=== PATIENT | male | born 1950 | race Caucasian/White ===

== ENCOUNTER 2017-01-28 20:43 | Emergency (ER) | payer SELFPAY ==
[2017-01-28] MEDS ORDERED: Albuterol 0.083% Inhal Sol (2.5 mg/3 mL) UD IH STA (22:41)
[2017-01-28] MEDS ORDERED: Albuterol 0.083% Inhal Sol (2.5 mg/3 mL) UD ONE (22:51)
[2017-01-28] MEDS ORDERED: Azithromycin 500 MG in Sodium Chloride 0.9% 250 ML IVPB STA (23:02)
[2017-01-28] MEDS ORDERED: Promethazine/Cod 6.25mg-10mg/5ml Syr UD PO STA (23:02)
--- NOTE | 2017-01-28 23:10 | C.PDOC ---
History Of Present Illness Patient is a 66 year old male with a Hx of diabetes and HTN, who presents to the ER for evaluation of URI symptoms for the past 3 days, associated with nasal congestion, sore throat, and dry cough. Patient reports he woke up with greenish discharge to his right eye. Denies fever, chills, headache, dizziness, visual changes, blurry vision, double vision, blindness, contact use, denies chest pain, SOB, palpitation, diaphoresis, wheezing ,abdominal pain, back pain, UTI sx. Denies recent travel or sick contact. Ambulate to ED for evaluation, not in any apparent distress. Occasional dry cough noted in ED. Time Seen by Provider: 01/28/17 21:46 Chief Complaint (Nursing): ENT Problem History Per: Patient History/Exam Limitations: no limitations Onset/Duration Of Symptoms: Days (3) Current Symptoms Are (Timing): Still Present Location Of Pain: Throat Sick Contacts (Context): None Associated Symptoms: Sore Throat, Cough (Dry), Nasal Congestion. denies: Fever , Chills, Other (Dizziness, Chest pain, SOB, Wheezing, Abdominal pain) Recent travel outside of the [place]: No Past Medical History Reviewed: Historical Data, Nursing Documentation, Vital Signs Vital Signs: Last Vital Signs Temp 97.5 F L 01/29/17 00:38 Pulse 78 01/29/17 00:38 Resp 18 01/29/17 00:38 BP 114/69 01/29/17 00:38 Pulse Ox 99 01/29/17 04:08 - Medical History PMH: Anxiety, Depression, Diabetes, HTN, Hypercholesterolemia, Chronic Pain ( Bilateral Leg Pain) - [facility] Procedures COLONOSCOPY (09/28/13) Family History: States: Unknown Family Hx - Social History Hx Tobacco Use: Yes Hx Alcohol Use: No Hx Substance Use: No - Immunization History Hx Tetanus Toxoid Vaccination: No Hx Influenza Vaccination: No Hx Pneumococcal Vaccination: No Review Of Systems Constitutional: Negative for: Fever, Chills ENT: Positive for: Nose Congestion, Throat Pain Cardiovascular: Negative for: Chest Pain Respiratory: Positive for: Cough (Dry). Negative for: Shortness of Breath, Wheezing Gastrointestinal: Negative for: Abdominal Pain Neurological: Negative for: Headache, Dizziness Physical Exam - Physical Exam Appears: Well, Non-toxic Skin: Normal Color, Warm, Dry, No Rash Eye(s): bilateral: PERRL, EOMI (no pain or limitation B/L), right: Other ( Copious amound of green discharge with mild conjunctival injection. No periorbital edema or erythema.) Ear(s): Bilateral: Normal Nose: No Flaring, No Discharge Oral Mucosa: Moist, No Drooling Throat: Erythema (Mild), No Exudate, No Drooling Neck: Supple Chest: Symmetrical, No Ecchymosis Cardiovascular: Rhythm Regular, No Friction Rub, No Murmur, No JVD Respiratory: No Decreased Breath Sounds, No Accessory Muscle Use, No Rales, No Rhonchi, No Stridor, No Wheezing Gastrointestinal/Abdominal: Soft, No Tenderness, No Distention, No Guarding Back: No CVA Tenderness Extremity: No Pedal Edema Neurological/Psych: Oriented x3, Normal Speech, Normal Cognition ED Course And Treatment - Laboratory Results Result Diagrams: 01/28/17 23:03 01/28/17 23:03 O2 Sat by Pulse Oximetry: 99 (Room air) Pulse Ox Interpretation: Normal - Radiology CXR: Interpreted by Me, Viewed By Me CXR Interpretation: Yes: No Acute Disease Progress Note: Blood work and CXR ordered. Nebulizer treatment, prednisone, and promethazine administered. Pt was OBS in ED for 3 hours and reports moderate improvement. On re-eval, pt is afebrile, hemodynamicaly stable. Non-toxic. [place] PO well in ED. PulseOx 99% rA. Right eye: exam c/w conjunctivitis r/ o bacterial infection. No evidence of periorbital cellulitis. ENT: no acute findings. Lungs: CTA B/L, BS equal B/L. ABd: benign, (-) guarding, (-) rebound. Back: (-) CVA tenderness. Neurologicaly intact. Diagnostics review, hyperglycemia noted. Hydration with IVF order. CBC- no leukocytosis. UA review (+) WBC. CXR (-) acute infiltrate. Pt has clinical finidngs c/w acute bronchitis, conjunctivitis r/o UTI. Pt advised on course of ds. ref. to F/u with PMD in 2-3 days for re-eavl. return to ED if any worsening or new changes. Disposition Counseled Patient/Family Regarding: Studies Performed, Diagnosis, Need For Followup, Rx Given - Disposition Referrals: [facility] at [facility] [Outside] Disposition: HOME/ ROUTINE Disposition Time: 00:02 Condition: STABLE Additional Instructions: Take medication as prescribed Encourage fluids Follow up with PMD in 2-3 days for re-evaluation. return to ED if any worsening or new changes. Prescriptions: Benzonatate [Tessalon Perle] 100 mg PO TID #14 capsule Cefdinir [Omnicef] 300 mg PO BID #14 cap Tobramycin [Tobrex] 1 drop RIGHTEYE Q4 #1 bottle Instructions: Acute Bronchitis (ED), Conjunctivitis (ED) Print Language: THAI - Clinical Impression Clinical Impression: Bronchitis, Conjunctivitis - Scribe Statement The provider has reviewed the documentation as recorded by the Scribe Tanner Louis All medical record entries made by the Denita were at my direction and personally dictated by me. I have reviewed the chart and agree that the record accurately reflects my personal performance of the history, physical exam, medical decision making, and the department course for this patient. I have also personally directed, reviewed, and agree with the discharge instructions and disposition.
[2017-01-28 23:13] LABS: BASO % 0.7 % (0.0-2.0); EOS # 0.7 K/uL (0.0-0.7); EOS % 11.2 % (0.0-4.0); HEMOGLOBIN 14.1 g/dL (12.0-18.0); LYMPH # 1.6 K/uL (1.0-4.3); LYMPH % 25.5 % (20.0-40.0); MEAN CELL VOLUME 88.6 fL (80.0-94.0); MEAN CORPUSCULAR HEMOGLOBIN 29.9 pg (27.0-31.0); MEAN CORPUSCULAR HGB CONC 33.7 g/dL (33.0-37.0); MEAN PLATELET VOLUME 10.9 fL (7.2-11.7); MONO # 0.6 K/uL (0.0-0.8); MONO % 10.1 % (0.0-10.0); NEUT # 3.2 K/uL (1.8-7.0); NEUT % 52.5 % (50.0-75.0); NRBC % 0.1 % (0.0-2.0); RBC 4.71 Mil/uL (4.40-5.90); RED CELL DISTRIBUTION WIDTH 12.9 % (11.5-14.5); WHITE BLOOD COUNT 6.1 K/uL (4.8-10.8)
[2017-01-28 23:17] LABS: URINE BACTERIA RARE (<OCC); URINE BILIRUBIN NEGATIVE (NEGATIVE); URINE BLOOD NEGATIVE (NEGATIVE); URINE CLARITY Clear (Clear); URINE COLOR Yellow (YELLOW); URINE GLUCOSE (UA) 3+ mg/dL (Normal); URINE NITRATE NEGATIVE (NEGATIVE); URINE PROTEIN NEGATIVE (NEGATIVE); URINE UROBILINOGEN NORMAL mg/dL (0.2-1.0)
[2017-01-28] MEDS ORDERED: Promethazine/Cod 6.25mg-10mg/5ml Syr UD ONE (23:19)
[2017-01-28] MEDS ORDERED: Azithromycin 500mg/250ML NS 500 MG/250 ML BAG IVPB ONE (23:19)
[2017-01-28 23:22] LABS: URINE LEUKOCYTE ESTERASE 1+ Leu/uL (Negative)
[2017-01-28 23:25] LABS: BLOOD UREA NITROGEN 11 mg/dL (9-20); GFR AFRICAN-AMERICAN > 60; GFR NON-AFRICAN AMERICAN > 60
[2017-01-28 23:26] LABS: CALCIUM 8.8 mg/dl (8.6-10.4)
[2017-01-29 00:38] VITALS: BP 114/69; PULSE 78; RESP 18; TEMP 97.5
[2017-01-29 00:45] VITALS: O2SAT 99
[2017-01-29] MEDS ORDERED: cefTRIAXone IV 1 gm in Dextros 50 ML IVPB ONE (01:03)
--- NOTE | 2017-01-29 10:38 | RAD ---
HISTORY: Cough COMPARISON: 01/21/2014 TECHNIQUE: Chest PA and lateral FINDINGS: LUNGS: No active pulmonary disease. PLEURA: No significant pleural effusion identified. No pneumothorax apparent. CARDIOVASCULAR: Normal. OSSEOUS STRUCTURES: No significant abnormalities. VISUALIZED UPPER ABDOMEN: Normal. OTHER FINDINGS: None. IMPRESSION: No active disease.
== END 2017-01-29 01:15 | disposition home or self-care (01) ==
LOC: C.ER 20:43
DX: J40 Bronchitis, not specified as acute or chronic (principal); Z72.0 Tobacco use; H10.9 Unspecified conjunctivitis
CPT/HCPCS: 71020; 80048; 81001; 85025; 87040; 96365; 99283; J0456; J0696; J7050

== ENCOUNTER 2017-03-07 16:14 | Emergency (ER) | payer SELFPAY ==
[2017-03-07 16:33] VITALS: TEMP 97.9; O2SAT 98
--- NOTE | 2017-03-07 17:12 | RAD ---
HISTORY: cough COMPARISON: No prior. TECHNIQUE: Chest PA and lateral FINDINGS: LUNGS: Mild venous congestion. PLEURA: No significant pleural effusion identified. No pneumothorax apparent. CARDIOVASCULAR: Normal. OSSEOUS STRUCTURES: No significant abnormalities. VISUALIZED UPPER ABDOMEN: Normal. OTHER FINDINGS: None. IMPRESSION: Mild venous congestion.
[2017-03-07 17:38] VITALS: BP 140/85; PULSE 74; RESP 16
--- NOTE | 2017-03-07 21:38 | C.PDOC ---
History Of Present Illness Ignacio Singer, a 66 year old male, presents to the ED complaining of cough productive of yellow and green sputum x1 month. The patient states that the cough gets worse at night and because of it he cannot sleep. He reports that he was seen here in the ED 3 weeks ago for similar symptoms and was given medication which offered no relief. Denies chest pain, shortness of breath, travel, fever, rash, nausea and vomiting. Time Seen by Provider: 03/07/17 16:31 Chief Complaint (Nursing): Cough, Cold, Congestion History Per: Patient History/Exam Limitations: no limitations Current Symptoms Are (Timing): Still Present Associated Symptoms: Cough Past Medical History Reviewed: Historical Data, Nursing Documentation, Vital Signs Vital Signs: Last Vital Signs Temp 97.9 F 03/07/17 16:23 Pulse 74 03/07/17 17:37 Resp 16 03/07/17 17:37 BP 140/85 03/07/17 17:37 Pulse Ox 98 03/07/17 21:45 - Medical History PMH: Anxiety, Depression, Diabetes, HTN, Hypercholesterolemia, Chronic Pain ( Bilateral Leg Pain) Denies: Chronic Kidney Disease - [facility] Procedures COLONOSCOPY (09/28/13) Family History: States: Unknown Family Hx - Social History Hx Tobacco Use: Yes Hx Alcohol Use: No Hx Substance Use: No - Immunization History Hx Tetanus Toxoid Vaccination: No Hx Influenza Vaccination: No Hx Pneumococcal Vaccination: No Review Of Systems Constitutional: Negative for: Fever Cardiovascular: Negative for: Chest Pain Respiratory: Positive for: Cough (Cough productive of yellow green sputum.). Negative for: Shortness of Breath Gastrointestinal: Negative for: Nausea, Vomiting Skin: Negative for: Rash Physical Exam - Physical Exam Appears: Well, Toxic Skin: Normal Color, Warm, Dry Head: Atraumatic, Normacephalic, No Tenderness Eye(s): bilateral: Normal Inspection, PERRL, EOMI Ear(s): Bilateral: Normal Nose: Normal Oral Mucosa: Moist Throat: Normal, No Erythema, No Exudate Neck: Normal, Normal ROM, Supple Chest: Symmetrical, No Tenderness Cardiovascular: No Friction Rub, No Murmur Respiratory: Normal Breath Sounds, No Rales, No Rhonchi, No Wheezing Gastrointestinal/Abdominal: Soft, No Tenderness Back: Normal Inspection, No CVA Tenderness Neurological/Psych: Oriented x3, Normal Speech, Normal Cognition, Normal Motor Gait: Steady ED Course And Treatment O2 Sat by Pulse Oximetry: 98 (RA) Pulse Ox Interpretation: Normal Medical Decision Making Medical Decision Makin Initial Impression: 66 year old male presenting with cough productive of yellow and green sputum Initial Plan: * CXR * Claritin * Zithromax 500mg PO * Prednisone TAB 40mg PO * Reevaluation CXR performes: results negative. On re-exam, the patient reports improvement of symptoms. Lungs are CTA, heart is RRR, ambulatory in the ED with steady gait. Abdomen is soft, non-tender and tolerating Po well. Follow up with the medical doctor within 1-2 days. Return if worsened. Disposition - Disposition Disposition: HOME/ ROUTINE Disposition Time: 17:00 Condition: GOOD Additional Instructions: Follow up with the medical doctor within 1-2 days, Return if worsened. Prescriptions: Azithromycin [Zithromax] 250 mg PO DAILY #4 tab predniSONE [Prednisone] 20 mg PO BID #10 tab Promethazine/Codeine [Phenergan/Codeine Oral Syrup] 5 ml PO Q8 PRN #50 ml PRN Reason: Cough Instructions: Acute Bronchitis (ED) Forms: [employer] (Kinyarwanda) - Clinical Impression Clinical Impression: Bronchitis - Scribe Statement The provider has reviewed the documentation as recorded by the Scribraúl Kennedy All medical record entries made by the Leroyibraúl were at my direction and personally dictated by me. I have reviewed the chart and agree that the record accurately reflects my personal performance of the history, physical exam, medical decision making, and the department course for this patient. I have also personally directed, reviewed, and agree with the discharge instructions and disposition.
== END 2017-03-07 17:37 | disposition home or self-care (01) ==
LOC: C.ER 16:14
DX: J40 Bronchitis, not specified as acute or chronic (principal)

== ENCOUNTER 2017-03-20 05:07 | Emergency (ER) | payer MEDICARE, OTHER ==
[2017-03-20 05:07] VITALS: BMI 23.0
[2017-03-20 05:22] VITALS: PULSE 80; TEMP 97; O2SAT 98
--- NOTE | 2017-03-20 05:26 | C.PDOC ---
Time Seen by Provider: 03/20/17 05:26 Chief Complaint (Nursing): Medical Clearance Past Medical History Vital Signs: Last Vital Signs Temp 97 F L 03/20/17 05:20 Pulse 80 03/20/17 05:20 Resp 14 03/20/17 05:20 BP 124/76 03/20/17 05:20 Pulse Ox 98 03/20/17 05:20 - Medical History PMH: Anxiety, Depression, Diabetes, HTN, Hypercholesterolemia, Chronic Pain ( Bilateral Leg Pain) Denies: Chronic Kidney Disease - [facility] Procedures COLONOSCOPY (09/28/13) Family History: States: Unknown Family Hx - Social History Hx Tobacco Use: Yes Hx Alcohol Use: No Hx Substance Use: No - Immunization History Hx Tetanus Toxoid Vaccination: No Hx Influenza Vaccination: No Hx Pneumococcal Vaccination: No ED Course And Treatment O2 Sat by Pulse Oximetry: 98 Disposition Counseled Patient/Family Regarding: Studies Performed, Diagnosis - Disposition Disposition Time: 05:26 Forms: [employer] (Lithuanian)
--- NOTE | 2017-03-20 05:34 | C.PDOC ---
History Of Present Illness 66 yo male w/PMHx of HTN, IDDM come in for evaluation of " feeling shaky, tremolous after I woke up at 3AM todany". Pt sts, took his Insulin prior to bedtime and skipped dinner. Pt woke at 3AM go to bathroom, when felt shaky. Pt sts, " I thought my sugar is high and took metformin 1tab prior to arrival". Pt admits, symptoms resolved with time. At present time, pt is asymptomatic. Ambulate to ED for evaluation, not in any apparent distress. Time Seen by Provider: 03/20/17 05:26 Chief Complaint (Nursing): Medical Clearance History Per: Patient Past Medical History Reviewed: Historical Data, Nursing Documentation, Vital Signs Vital Signs: Last Vital Signs Temp 97 F L 03/20/17 05:20 Pulse 80 03/20/17 05:20 Resp 14 03/20/17 05:20 BP 124/76 03/20/17 05:20 Pulse Ox 98 03/20/17 05:26 - Medical History PMH: Anxiety, Depression, Diabetes, HTN, Hypercholesterolemia, Chronic Pain ( Bilateral Leg Pain) Denies: Chronic Kidney Disease - [facility] Procedures COLONOSCOPY (09/28/13) Family History: States: No Known Family Hx - Social History Hx Tobacco Use: Yes Hx Alcohol Use: No Hx Substance Use: No - Immunization History Hx Tetanus Toxoid Vaccination: No Hx Influenza Vaccination: No Hx Pneumococcal Vaccination: No Review Of Systems Except As Marked, All Systems Reviewed And Found Negative. Constitutional: Negative for: Fever, Chills Eyes: Negative for: Vision Change Cardiovascular: Negative for: Chest Pain, Palpitations, Edema, Light Headedness Respiratory: Negative for: Cough, Shortness of Breath, Wheezing Gastrointestinal: Negative for: Nausea, Vomiting, Abdominal Pain, Diarrhea Genitourinary: Negative for: Dysuria, Incontinence Musculoskeletal: Negative for: Neck Pain, Back Pain Neurological: Negative for: Weakness, Numbness, Altered Mental Status, Headache , Dizziness Physical Exam - Physical Exam Appears: Well, Non-toxic, No Acute Distress Skin: Normal Color, Warm, Dry, No Rash Eye(s): bilateral: PERRL Nose: No Flaring Oral Mucosa: Moist, No Drooling Throat: Normal, No Erythema, No Exudate, No Drooling Neck: Supple Cardiovascular: Rhythm Regular Respiratory: No Decreased Breath Sounds, No Accessory Muscle Use, No Rales, No Rhonchi, No Stridor, No Wheezing Gastrointestinal/Abdominal: Soft, No Tenderness, No Distention, No Guarding Back: No CVA Tenderness Extremity: Normal ROM, No Pedal Edema, No Deformity Neurological/Psych: Oriented x3, Normal Speech ED Course And Treatment O2 Sat by Pulse Oximetry: 98 Pulse Ox Interpretation: Normal Progress Note: On re-evaluation, pt is afebrile, hemodynamicaly stable. Non- toxic. Ambulatory in ED with stable gait. Asymptomatic. Tolerate Po well in ED. PulsEOx 98% RA. Neck: Supple. Lungs: CTA B/L, BS equal B/L. CVS: (+)S1S2 , reg. Abd: benign. Pt had episode of tremolous likely sec. to hypoglycemia. Currently asymtomatic. Pt advised on diabetic medictaion use and. ref. to F/u with PMD in 2-3 days for re-eval. return to ED if any worsening or new changes. Disposition Counseled Patient/Family Regarding: Studies Performed, Diagnosis, Need For Followup - Disposition Referrals: [facility] at [facility] [Outside] Kath Choe MD [Staff Provider] - Disposition: HOME/ ROUTINE Disposition Time: 05:29 Condition: STABLE Additional Instructions: Follow up with PMD in 2-3 days for re-evaluation. Return to ED if any worsening or new changes. Instructions: Diabetic Hypoglycemia (ED) Forms: [employer] (British) Print Language: YI - Clinical Impression Clinical Impression: Hypoglycemia
[2017-03-20 05:48] VITALS: BP 120/80; RESP 16
== END 2017-03-20 05:47 | disposition home or self-care (01) ==
LOC: C.ER 05:07
DX: E11.649 Type 2 diabetes mellitus with hypoglycemia without coma (principal); Z79.4 Long term (current) use of insulin

== ENCOUNTER 2018-01-11 15:43 | Emergency (ER) | payer MEDICARE, OTHER ==
[2018-01-11 15:43] VITALS: BMI 24.5
[2018-01-11 15:50] VITALS: BP 136/88; PULSE 78; TEMP 98.6; O2SAT 98
--- NOTE | 2018-01-11 16:23 | RAD ---
HISTORY: COMPARISON: 03/07/2017. TECHNIQUE: Chest PA and lateral FINDINGS: LINES AND TUBES: None. LUNG AND PLEURA: The lungs are well inflated and clear. No pleural effusion or pneumothorax. HEART AND MEDIASTINUM: The heart is not enlarged. The hilar and mediastinal contours are within normal limits. SKELETAL STRUCTURES: The bony structures are within normal limits for the patient's age. VISUALIZED UPPER ABDOMEN: Normal. OTHER FINDINGS: None. IMPRESSION: No active pulmonary disease.
--- NOTE | 2018-01-11 16:29 | C.PDOC ---
History Of Present Illness 67 year old male with PMH DM , HTN presents to the ED for evaluation of persistent dry cough for 2 weeks. Patient states the cough is causing him to have a sore throat. Patient reports his sugar was 140 this morning. He has not taken cough medicine for symptoms and denies fever, chills, chest pain, shortness of breath, or change in medication. Time Seen by Provider: 01/11/18 15:51 Chief Complaint (Nursing): ENT Problem History Per: Patient, Evaluation Manager (KE Castañeda) History/Exam Limitations: no limitations Onset/Duration Of Symptoms: Other (2 weeks ) Current Symptoms Are (Timing): Still Present Associated Symptoms: Sore Throat, Cough. denies: Fever, Chills, Sputum Additional History Per: Patient Past Medical History Reviewed: Historical Data, Nursing Documentation, Vital Signs Vital Signs: Last Vital Signs Temp 98.6 F 01/11/18 15:48 Pulse 78 01/11/18 15:48 Resp 20 01/11/18 17:28 BP 136/88 01/11/18 15:48 Pulse Ox 98 01/11/18 18:54 - Medical History PMH: Anxiety, Depression, Diabetes, HTN, Hypercholesterolemia, Chronic Pain ( Bilateral Leg Pain) Denies: Chronic Kidney Disease Surgical History: No Surg Hx - [facility] Procedures COLONOSCOPY (09/28/13) Family History: States: Unknown Family Hx - Social History Hx Tobacco Use: Yes Hx Alcohol Use: No Hx Substance Use: No - Immunization History Hx Tetanus Toxoid Vaccination: No Hx Influenza Vaccination: No Hx Pneumococcal Vaccination: No Review Of Systems Constitutional: Negative for: Fever, Chills ENT: Positive for: Throat Pain Cardiovascular: Negative for: Chest Pain Respiratory: Positive for: Cough. Negative for: Shortness of Breath, Sputum Physical Exam - Physical Exam Appears: Non-toxic, No Acute Distress Skin: Normal Color, Warm, Dry Head: Atraumatic, Normacephalic Eye(s): bilateral: Normal Inspection, EOMI Ear(s): Bilateral: Normal Nose: Normal Oral Mucosa: Moist Throat: Normal, No Erythema, No Exudate Neck: Normal ROM, Supple Chest: Symmetrical, No Deformity, No Tenderness Cardiovascular: Rhythm Regular Respiratory: Normal Breath Sounds, No Rales, No Rhonchi, No Wheezing, Other ( occasional dry cough noted ) Gastrointestinal/Abdominal: Normal Exam, Soft, No Tenderness Extremity: Normal ROM, Capillary Refill (less than 2 seconds ) Neurological/Psych: Oriented x3, Normal Speech, Normal Cognition Gait: Steady ED Course And Treatment O2 Sat by Pulse Oximetry: 98 (on RA) Pulse Ox Interpretation: Normal - Radiology CXR: Interpreted by Me, Viewed By Me CXR Interpretation: Yes: No Acute Disease Progress Note: CXR ordered, results are negative. Discussed with patient possible differential diagnosis, which include but are not limited to a medication reaction to Lisinopril. Patient was instructed to change the medication and f/u with PMD within 1-2 days for further evaluation. Case discussed with Dr Hurtado, agreed upon plan and treatment. Disposition - Disposition Referrals: [facility] at [facility] [Outside] Disposition: HOME/ ROUTINE Disposition Time: 16:25 Condition: STABLE Additional Instructions: You were evaluated today for your cough. Your chest xray shows no signs of infection. The cough MAY be caused by your medicine Lisinopril. It is suggested you stop your Lisinopril and start Norvasc. You should follow up with your doctor in 1-2 days or return to ER if symptoms persist or worsen. Fuiste evaluado hoy para tu tos. Stevens radiografa de trax no muestra signos de infeccin. La tos PUEDE ser causada por stevens medicamento Lisinopril. Se sugiere que detenga stevens Lisinopril y comience con Norvasc. Debe hacer un seguimiento con stevens mdico en 1-2 rivera o regresar a la ginny de emergencias si los sntomas persisten o empeoran. Prescriptions: amLODIPine [Norvasc] 5 mg PO DAILY #14 tab Benzonatate [Tessalon Perle] 100 mg PO BID PRN #14 capsule PRN Reason: Cough Instructions: Cough, Adult (DC) Forms: [employer] (Cambodian) Print Language: VIETNAMESE - Clinical Impression Clinical Impression: Cough - PA / FINANCIAL SOLUTIONS ADVISOR / Resident Statement MD/DO has reviewed & agrees with the documentation as recorded. - Scribe Statement The provider has reviewed the documentation as recorded by the Scribe (Samanta Gonsales) All medical record entries made by the Scribe were at my direction and personally dictated by me. I have reviewed the chart and agree that the record accurately reflects my personal performance of the history, physical exam, medical decision making, and the department course for this patient. I have also personally directed, reviewed, and agree with the discharge instructions and disposition.
[2018-01-11 17:28] VITALS: RESP 20
== END 2018-01-11 17:00 | disposition home or self-care (01) ==
LOC: C.ER 15:43
DX: R05 Cough (principal); I10 Essential (primary) hypertension; E11.9 Type 2 diabetes mellitus without complications

== ENCOUNTER 2018-03-15 15:33 | Emergency (ER) | payer MEDICARE ==
[2018-03-15 15:33] VITALS: BMI 24.5
[2018-03-15 15:51] VITALS: BP 131/66; PULSE 75; RESP 18; TEMP 98.3; O2SAT 100
--- NOTE | 2018-03-15 17:18 | C.PDOC ---
History Of Present Illness 67 year old male patient presents to the ER with c/o loose finger nail of the 4th left finger. Patient states he was fixing something at home weeks ago and injured his fingers. Patient states he has bruises on his fingers but couple days ago noticed that fingernail of the 4th left finger is loose and it concerns him because he has DM and is concerned about an infection. Patient denies fever, numbness and decrease ROM. Time Seen by Provider: 03/15/18 16:10 Chief Complaint (Nursing): Finger,Hand,&Wrist History Per: Patient History/Exam Limitations: no limitations Onset/Duration Of Symptoms: Days Current Symptoms Are (Timing): Still Present Past Medical History Reviewed: Historical Data, Nursing Documentation, Vital Signs Vital Signs: Last Vital Signs Temp 98.3 F 03/15/18 15:49 Pulse 75 03/15/18 15:49 Resp 18 03/15/18 15:49 BP 131/66 03/15/18 15:49 Pulse Ox 100 03/15/18 20:34 - Medical History PMH: Anxiety, Depression, Diabetes, HTN, Hypercholesterolemia, Chronic Pain ( Bilateral Leg Pain) - Unipower Battery Procedures COLONOSCOPY (09/28/13) Family History: States: Unknown Family Hx - Social History Hx Tobacco Use: Yes Hx Alcohol Use: No Hx Substance Use: No - Immunization History Hx Tetanus Toxoid Vaccination: No Hx Influenza Vaccination: No Hx Pneumococcal Vaccination: No Review Of Systems Except As Marked, All Systems Reviewed And Found Negative. Constitutional: Negative for: Fever Musculoskeletal: Positive for: Other (separation of left 4th finger ) Neurological: Negative for: Numbness, Other (decrease ROM in left 4th finger) Physical Exam - Physical Exam Appears: Well, Non-toxic, No Acute Distress Skin: Normal Color, Warm, Dry Head: Atraumatic, Normacephalic Extremity: No Tenderness, No Deformity, No Swelling, Other (healing subungal hemorrhages on right middle finger and left 4th finger 30%, left 4th finger with onycholysis, no erythema, no swelling, no warmth, no drainage.) Pulses: Left Radial: Normal, Right Radial: Normal Neurological/Psych: Oriented x3, Normal Speech, Normal Motor, Normal Sensation, Normal Reflexes, No Other (neural deficits) Gait: Steady ED Course And Treatment O2 Sat by Pulse Oximetry: 100 (RA) Pulse Ox Interpretation: Normal - Other Rad XR hand X-Ray: Read By Radiologist Interpretation: Accession No. : [id number]. Patient Name / ID : FELICIA BULLARD / [id number]. Exam Date : 03/15/2018 16:26:28 ( Approved ). Study Comment : Sex / Age : M / 67Y. Creator : Kat Henriquez. Dictator : Aly Levine MD. Domestic Freight Forwarder : Control Cabinet Assembler : Aly Levine MD. Approver2 : Report Date : 03/15/2018 16:35:00. My Comment : . Date of service: 03/15/2018. PROCEDURE: Left ring finger radiographs. HISTORY: injury. COMPARISON: None. TECHNIQUE: AP radiograph of the left hand, as well as spot oblique and lateral images of left ring finger were obtained. FINDINGS: LEFT RING FINGER: Osseous excrescence at the base of the middle phalanx which may represent avulsion fracture. The finding is marked on the study for review. Remainder of the left hand (as seen on the AP view) is grossly unremarkable. JOINTS: Normal. SOFT TISSUES: Normal. OTHER FINDINGS : None. IMPRESSION: Findings suggestive of avulsion fracture at the base of the middle phalanx. Progress Note: Impression: left 4th fingernail onycholysis secondary to trauma: -- XR left hand. Reassess: Patient is resting comfortably. NAD. Nail was tapped back to finger and patient is instructed to f/u with hand specialist. Disposition - Disposition Referrals: Myron Mahajan MD [Staff Provider] - Disposition: HOME/ ROUTINE Disposition Time: 17:16 Condition: STABLE Additional Instructions: Follow up with hand specialist within 2-3 days. Return to ED if feel worse. Instructions: Nail Avulsion (DC) Forms: [employer] (Hebrew) Print Language: PALESTINIAN - Clinical Impression Clinical Impression: Onycholysis - PA / GYMNASTIC COACH / Resident Statement MD/DO has reviewed & agrees with the documentation as recorded. - Scribe Statement The provider has reviewed the documentation as recorded by the Scribe [place] Do All medical record entries made by the Scribe were at my direction and personally dictated by me. I have reviewed the chart and agree that the record accurately reflects my personal performance of the history, physical exam, medical decision making, and the department course for this patient. I have also personally directed, reviewed, and agree with the discharge instructions and disposition.
--- NOTE | 2018-03-15 17:48 | RAD ---
Date of service: 03/15/2018 PROCEDURE: Left ring finger radiographs. HISTORY: injury COMPARISON: None. TECHNIQUE: AP radiograph of the left hand, as well as spot oblique and lateral images of left ring finger were obtained. FINDINGS: LEFT RING FINGER: Osseous excrescence at the base of the middle phalanx which may represent avulsion fracture. The finding is marked on the study for review. Remainder of the left hand (as seen on the AP view) is grossly unremarkable. JOINTS: Normal. SOFT TISSUES: Normal. OTHER FINDINGS: None. IMPRESSION: Findings suggestive of avulsion fracture at the base of the middle phalanx.
== END 2018-03-15 17:30 | disposition home or self-care (01) ==
LOC: C.ER 15:33
DX: L60.1 Onycholysis (principal); E11.9 Type 2 diabetes mellitus without complications; E78.00 Pure hypercholesterolemia, unspecified; I10 Essential (primary) hypertension; Z72.0 Tobacco use